=== PATIENT | male | born 2000 | race Caucasian/White ===

== ENCOUNTER 2019-04-04 00:49 | Emergency (ER) | payer OTHER ==
[2019-04-04 01:43] LABS: BASO % 0.5 % (0.0-1.0); EOS # 0.1 10^3/uL (0.0-0.50); EOS % 0.8 % (0.0-3.0); HEMATOCRIT 42.1 % (42.0-52.0); HEMOGLOBIN 14.5 g/dl (13.5-17.5); LYMPH # 2.2 10^3/uL (1.5-6.5); LYMPH % 26.5 % (24.0-44.0); MEAN CORPUSCULAR HEMOGLOBIN 31.1 pg (27.0-33.0); MEAN CORPUSCULAR HGB CONC 34.4 g/dl (32.0-36.5); MEAN CORPUSCULAR VOLUME 90.3 fl (80.0-96.0); MONO # 0.7 10^3/uL (0.0-0.8); MONO % 8.5 % (0.0-5.0); NEUTROPHILS # 5.2 10^3/uL (1.8-7.7); NEUTROPHILS % 63.5 % (36.0-66.0); PLATELET COUNT, AUTOMATED 212 10^3/uL (150-450); RED BLOOD COUNT 4.66 10^6/uL (4.30-6.10); WHITE BLOOD COUNT 8.3 10^3/uL (4.0-10.0)
[2019-04-04 02:14] LABS: BLOOD UREA NITROGEN 14 MG/DL (7-18); CALCIUM LEVEL 8.8 MG/DL (8.5-10.1); CARBON DIOXIDE LEVEL 28 MEQ/L (21-32); CHLORIDE LEVEL 107 MEQ/L (98-107); CREATININE FOR GFR 1.42 MG/DL (0.70-1.30); GLUCOSE, FASTING 107 MG/DL (70-100); POTASSIUM SERUM 3.6 MEQ/L (3.5-5.1); SODIUM LEVEL 141 MEQ/L (136-145)
[2019-04-04 03:45] LABS: AMPHETAMINES LEVEL URINE NEGATIVE (NEGATIVE); BARBITURATES URINE NEGATIVE (NEGATIVE); BENZODIAZEPINES URINE NEGATIVE (NEGATIVE); CANNABINOIDS URINE NEGATIVE (NEGATIVE); COCAINE METABOLITE URINE NEGATIVE (NEGATIVE); METHADONE URINE NEGATIVE (NEGATIVE); OPIATES URINE NEGATIVE (NEGATIVE); PHENCYCLIDINE URINE NEGATIVE (NEGATIVE)
--- NOTE | 2019-04-04 04:42 | REPVR ---
EXAM: CT Head Without Contrast EXAM DATE/TIME: 04/04/2019 3:00 AM CLINICAL HISTORY: 18 years old, male; Other: Possible seizure; Additional info: Syncope v seizure TECHNIQUE: Imaging protocol: Computed tomography images of the head without contrast. Radiation optimization: All CT scans at this facility use at least one of these dose optimization techniques: automated exposure control; mA and/or kV adjustment per patient size (includes targeted exams where dose is matched to clinical indication); or iterative reconstruction. COMPARISON: No relevant prior studies available. FINDINGS: Brain: The cortical/white matter interfaces are preserved throughout the brain. There is no evidence of intracranial hemorrhage. No parenchymal mass lesions are identified. Ventricles: The ventricular system is normal in size and configuration. Bones/joints: No acute fractures of the skull are identified. Sinuses: The visualized paranasal sinuses are clear. Mastoid air cells: The mastoid air cells are clear. Soft tissues: Unremarkable. IMPRESSION: Normal appearance of the brain. Electronically signed by: Aziza Roy On 04/04/2019 04:41:53 AM
[2019-04-04 05:22] VITALS: BP 124/59
--- NOTE | 2019-04-04 06:03 | ECGEPIP ---
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
--- NOTE | 2019-04-04 08:08 | REP ---
The PA and lateral chest: There are no comparisons. The lung cantu are clear. The cardiac size is normal. The lalo, mediastinum, and skeletal structures are unremarkable. Impression: Negative PA and lateral chest. Electronically Signed by Stephan Wiggins MD 04/04/2019 07:59 A
== END 2019-04-04 06:08 | disposition home or self-care (01) ==
LOC: M ED 00:49
DX: R25.1 Tremor, unspecified (principal)

== ENCOUNTER 2019-08-12 22:07 | Inpatient (IN) | payer OTHER ==
[~2019-08-12] VITALS: Ht 170.2 cm; Wt 67.0 kg
[2019-08-12] MEDS ORDERED: ASPIRIN 81 MG CHEW TABLET PO ONE (22:30)
[2019-08-12] MEDS ORDERED: GI COCKTAIL 50ML BTL(HYOSCYAMINE/MAALOX/LIDOCAINE VISCOUS)(1:3:1) PO ONE (22:30)
[2019-08-12] MEDS ORDERED: NS 1,000 ML IV ONE (22:30)
[2019-08-12 22:54] LABS: BASO % 0.3 % (0.0-1.0); EOS % 0.4 % (0.0-3.0); HEMATOCRIT 43.7 % (42.0-52.0); HEMOGLOBIN 15.1 g/dl (13.5-17.5); LYMPH % 20.4 % (24.0-44.0); MEAN CORPUSCULAR HEMOGLOBIN 30.9 pg (27.0-33.0); MEAN CORPUSCULAR HGB CONC 34.6 g/dl (32.0-36.5); MEAN CORPUSCULAR VOLUME 89.5 fl (80.0-96.0); MONO # 0.7 10^3/uL (0.0-0.8); MONO % 6.7 % (0.0-5.0); NEUTROPHILS # 7.2 10^3/uL (1.5-8.5); PLATELET COUNT, AUTOMATED 262 10^3/uL (150-450); RED BLOOD COUNT 4.88 10^6/uL (4.30-6.10)
[2019-08-12 23:10] LABS: PROTHROMBIN TIME 12.9 SECONDS (11.8-14.0)
[2019-08-12 23:24] LABS: AMPHETAMINES LEVEL URINE NEGATIVE (NEGATIVE); BARBITURATES URINE NEGATIVE (NEGATIVE); BENZODIAZEPINES URINE NEGATIVE (NEGATIVE); CANNABINOIDS URINE NEGATIVE (NEGATIVE); COCAINE METABOLITE URINE NEGATIVE (NEGATIVE); METHADONE URINE NEGATIVE (NEGATIVE); OPIATES URINE NEGATIVE (NEGATIVE); PHENCYCLIDINE URINE NEGATIVE (NEGATIVE)
[2019-08-12 23:33] LABS: ALBUMIN 4.2 GM/DL (3.2-5.2); ALT/SGPT 28 U/L (12-78); BILIRUBIN,DIRECT 0.1 MG/DL (0.0-0.2); BILIRUBIN,TOTAL 0.2 MG/DL (0.2-1.0); BLOOD UREA NITROGEN 11 MG/DL (7-18); CALCIUM LEVEL 8.7 MG/DL (8.5-10.1); CARBON DIOXIDE LEVEL 28 MEQ/L (21-32); CHLORIDE LEVEL 108 MEQ/L (98-107); CK-MB VALUE MASS < 1.0 NG/ML (<3.6); CPK CREATINE PHOSPHOKINASE 230 U/L (39-308); CREATININE FOR GFR 1.09 MG/DL (0.70-1.30); GLUCOSE, FASTING 100 MG/DL (70-100); LIPASE 6061 U/L (73-393); MB/CK RELATIVE INDEX 0.43 (< OR =4); POTASSIUM SERUM 3.8 MEQ/L (3.5-5.1); SODIUM LEVEL 142 MEQ/L (136-145); TOTAL PROTEIN 7.7 GM/DL (6.4-8.2); TROPONIN I < 0.02 NG/ML (< 0.10)
[2019-08-12] MEDS ORDERED: MORPHINE 4 MG/ML 1ML VIAL/SYRINGE (J2270) IV ONE (23:45)
[2019-08-12] MEDS ORDERED: ZOFR4TAB16 PO (23:59)
[2019-08-12] MEDS ORDERED: NORC1TAB7 PO (23:59)
[2019-08-13] VITALS (8 sets, daily range): BP systolic 104–132; BP diastolic 50–72
[2019-08-13] MEDS: NORCO 5/325MG TABLET (BULK FOR ED) PO ONE ×2 (00:11→00:15)
[2019-08-13] MEDS ORDERED: ISOVUE-370 76% 100ML VIAL (Q9967) As Ordered ONE (02:41)
--- NOTE | 2019-08-13 03:23 | REPVR ---
PROCEDURE INFORMATION: Exam: CT Head Without Contrast Exam date and time: 08/13/2019 2:51 AM Age: 19 years old Clinical history: Altered mental status/memory loss; Additional info: AMS, pancreatitis, seizures TECHNIQUE: Imaging protocol: Computed tomography of the head without contrast. Radiation optimization: All CT scans at this facility use at least one of these dose optimization techniques: automated exposure control; mA and/or kV adjustment per patient size (includes targeted exams where dose is matched to clinical indication); or iterative reconstruction. COMPARISON: CT Head without contrast 04/04/2019 2:59 AM FINDINGS: Brain: Normal. No hemorrhage. Unremarkable white matter. No mass effect. Ventricles: Normal. No ventriculomegaly. Bones/joints: Unremarkable. No acute fracture. Sinuses: Visualized sinuses are unremarkable. No fluid levels. Mastoid air cells: Visualized mastoid air cells are well aerated. Soft tissues: Unremarkable. IMPRESSION: Negative noncontrast head CT without change from 04/04/2019. Electronically signed by: Aba De Leon On 08/13/2019 03:22:50 AM
--- NOTE | 2019-08-13 03:30 | REPVR ---
PROCEDURE INFORMATION: Exam: CT Chest With Contrast Exam date and time: 08/13/2019 2:51 AM Age: 19 years old Clinical history: Chest pain; Additional info: AMS, pancreatitis, seizures TECHNIQUE: Imaging protocol: Computed tomography of the chest with intravenous contrast. Radiation optimization: All CT scans at this facility use at least one of these dose optimization techniques: automated exposure control; mA and/or kV adjustment per patient size (includes targeted exams where dose is matched to clinical indication); or iterative reconstruction. Contrast material: ISOVUE 370; Contrast volume: 100 ml; Contrast route: IV; COMPARISON: CR Chest, 2 view PA, Lat 08/12/2019 10:31 PM FINDINGS: Lungs: Unremarkable. No consolidation. No masses. Pleural space: Unremarkable. No pneumothorax. No pleural effusion. Heart: Unremarkable. No cardiomegaly. No pericardial effusion. Mediastinum: There is soft tissue conforming to the anterior mediastinum consistent with residual thymic tissue. Pulmonary arteries: The main pulmonary artery measures 23 mm. No central pulmonary embolism is identified. Aorta: The ascending thoracic aorta measures 23 mm. Lymph nodes: Unremarkable. No enlarged lymph nodes. Bones/joints: Unremarkable. No acute fracture. Soft tissues: Unremarkable. IMPRESSION: Negative CT chest. No central pulmonary embolism is identified. Electronically signed by: Aba De Leon On 08/13/2019 03:30:11 AM
--- NOTE | 2019-08-13 03:34 | REPVR ---
PROCEDURE INFORMATION: Exam: CT Abdomen And Pelvis With Contrast Exam date and time: 08/13/2019 2:51 AM Age: 19 years old Clinical history: Abdominal pain; Generalized; Additional info: AMS, pancreatitis, seizures TECHNIQUE: Imaging protocol: Computed tomography of the abdomen and pelvis with intravenous contrast. Radiation optimization: All CT scans at this facility use at least one of these dose optimization techniques: automated exposure control; mA and/or kV adjustment per patient size (includes targeted exams where dose is matched to clinical indication); or iterative reconstruction. Contrast material: ISOVUE 370; Contrast volume: 100 ml; Contrast route: IV; COMPARISON: No relevant prior studies available. FINDINGS: Liver: The liver attenuation is 100 Hounsfield units and the spleen is 128 Hounsfield units. The liver at mid clavicular line measures 18.5 cm. Gallbladder and bile ducts: Normal. No calcified stones. No ductal dilation. Pancreas: Normal. No ductal dilation. Spleen: Normal. No splenomegaly. Adrenals: Normal. No mass. Kidneys and ureters: Normal. No hydronephrosis. Stomach and bowel: Unremarkable. No obstruction. No mucosal thickening. Appendix: There are no changes of appendicitis. A normal appendix is not seen. Intraperitoneal space: Unremarkable. No free air. No significant fluid collection. Vasculature: Unremarkable. No abdominal aortic aneurysm. Lymph nodes: Unremarkable. No enlarged lymph nodes. Bladder: Unremarkable as visualized. Reproductive: Unremarkable as visualized. Bones/joints: Unremarkable. No acute fracture. Soft tissues: Unremarkable. IMPRESSION: 1. Mild hepatomegaly. 2. Otherwise negative CT abdomen/pelvis. Electronically signed by: Aba De Leon On 08/13/2019 03:34:23 AM
[2019-08-13] MEDS ORDERED: levETIRAcetam INJection 1,000 MG in D5W 100 ML IV ONE (04:15)
[2019-08-13] MEDS ORDERED: ONDANSETRON 4MG/2ML VIAL (J2405) IV PRN (04:45)
[2019-08-13] MEDS ORDERED: ACETAMINOPHEN TAB 650MG DOSE (2X325MG) PO PRN (04:45)
[2019-08-13] MEDS ORDERED: LORazepam 2 MG TAB PO PRN (05:00)
--- NOTE | 2019-08-13 06:37 | HPEPDOC ---
General Date of Admission Aug 13, 2019 at 04:39 Date of Service: Aug 13, 2019 Other Providers neuro: Dr. Rocha Attending Physician: LEYDI HART DO Chief Complaint The patient is a 19-year-old male admitted with a reason for visit of Pancreatitis, Alcoholic, Acute, Recurrent Seizures. History of Present Illness 19-year-old male recently being worked up for possible seizures since March 2019, following with Dr. Rocha, presents for initial left-sided chest pain, and later found to have question of seizures in the ER. He reports this chest pain was s harp left upper chest without any radiation or aggravating or alleviating factors. Pain worse with deep breathing, came on suddenly while he was resting without any inciting factors. Denies any recent fevers, chills, travel, changes in meds, sick contacts, prolonged periods of rest, or any recent injuries. No cardiac history in him or family. He reports chest pain self resolved in the ER, however upon discharge, he was noted to have 6 episodes of questionable seizures. When examined at bedside, he has his friends in the room, who witnessed the seizure and state he had a total of 6 episodes, which increased in length in succession, first episode lasting about a minute, second episode around 5 minutes, ultimately last episode lasting about one hour. During these episodes, patient reports he was able to fully understand and make out what people are saying and what was going on around him, however he felt "locked in" and unable to verbalize back what he wanted to say. No loss of consciousness, tongue biting, shaking, bowel or bladder incontinence. These episodes also reportedly self resolved without any intervention. He was reportedly postictal with some slurred speech and confusion after each episode. ER spoke with Dr. Rocha who recommended loading dose Keppra, and to switch to by mouth maintenance Keppra in the morning. At time of admission, he denies all symptoms and feels back to normal. Of note, he was also noted to have elevated lipase 6000+, downplays how much alcohol he drinks, stating "only on occasions" and last drink reportedly last weekend, however EtOH at 0.194. No pancreatitis noted on imaging, and chest pain resolved on its own. No episode of abd pain or n/v/bowel changes. Will be admitted for ?seizure and ?pancreatitis. Home Medications Scheduled Ondansetron HCl (Zofran) 4 Mg Tablet, 1 TAB PO Q6H Scheduled PRN Hydrocodone/Acetaminophen ([place] 5-325 Tablet) 1 Each Tablet, 1-2 TAB PO Q4-6HP PRN for pain Allergies Coded Allergies: No Known Allergies (Unverified , 04/04/19) Past Medical History Medical History ?seizures Surgical History none Family History asked. All healthy per pt Social History alcohol: downplays how much he drinks. States only on occasions, but elevated EtOH and laughing when saying this drugs: denies tobacco: denies active infantry on [place] A-FIB/CHADSVASC A-FIB History Current/History of A-Fib/PAF?: No Current PO Anticoag Therapy: No Review of Systems Other systems Constitutional: Denies fever, chills, night sweats, weight loss HEENT: Denies headache, dysphagia Skin: Denies any rashes or lesions Pulmonary: Denies dyspnea, cough, wheezing Cardiac: Admits left upper chest pain self resolved. No palpitations, orthopnea, PND, edema, lightheadedness GI: Denies nausea, vomiting, abdominal pain, diarrhea, constipation, melena, hematochezia : Denies dysuria, hematuria, retention MSK: Denies new pains or weakness Neurologic: Denies new numbness/tingling. Admits to feeling "locked in" and unable to verbalize his thoughts. Currently no symptoms. See HPI Physical Examination Other physical findings General exam: A&O 3, NAD, resting comfortably HEENT: NCAT, EOMI, PEERLA Cardiac: RRR, normal S1 & S2, no murmurs Respiratory: CTAB, good air exchange, no w/r/r Abdomen: soft, NT, ND, normoactive bowel sounds Extremity: 2+ radial and dorsalis pedis pulses, no edema or calf tenderness Skin: [place], warm, dry, no visible rash Msk: strength 5/5 x4, normal tone, equal social services coordinator strength Neuro: normal speech, no focal deficits. CN 2-12 intact. Finger to nose & Rapid alternating mvmts intact. No tongue biting lesions or nystagmus. Answers appropriately & follows commands. No slurred speech or deficits. Sensation & motor all intact Psych: Normal mood and affect Vital Signs Vital Signs Date Time Temp Pulse Resp B/P (MAP) Pulse Ox O2 Delivery O2 Flow Rate FiO2 11/27/19 05:01 70 118/67 (84) 97 08/13/19 01:17 Room Air 08/13/19 00:11 15 08/12/19 22:21 97.7 Laboratory Data Labs 24H Laboratory Tests 2 08/12/19 22:39: Immature Granulocyte % (Auto) 0.2, Neutrophils (%) (Auto) 72.0H, Lymphocytes (%) (Auto) 20.4L, Monocytes (%) (Auto) 6.7H, Eosinophils (%) (Auto) 0.4, Basophils (%) (Auto) 0.3, Neutrophils # (Auto) 7.2, Lymphocytes # (Auto) 2.0, Monocytes # (Auto) 0.7, Eosinophils # (Auto) 0.0, Basophils # (Auto) 0.0, Nucleated Red Blood Cells % (auto) 0.0, Prothrombin Time 12.9, Prothromb Time International Ratio 1.00, Anion Gap 6L, Calcium Level 8.7, Total Bilirubin 0.2, Direct Bilirubin 0.1, Aspartate Amino Transf (AST/SGOT) 27, Alanine Aminotransferase (ALT/SGPT) 28, Alkaline Phosphatase 88, Total Creatine Kinase 230, Creatine Kinase MB < 1.0, Creatine Kinase MB Relative Index 0.43, Troponin I < 0.02, Total Protein 7.7, Albumin 4.2, Albumin/Globulin Ratio 1.20, Lipase 6061H, Urine Opiates Screen NEGATIVE, Urine Methadone Screen NEGATIVE, Urine Barbiturates Screen NEGATIVE, Urine Phencyclidine Screen NEGATIVE, Urine Amphetamines Screen NEGATIVE, Urine Benzodiazepines Screen NEGATIVE, Urine Cocaine Metabolite Screen NEGATIVE, Urine Cannabinoids Screen NEGATIVE, Ethyl Alcohol Level 0.194H CBC/BMP Laboratory Tests 08/12/19 22:39 Assessment/Plan 19-year-old healthy male being worked up for possible seizures since March 2019, initially presented for chest pain that self resolved, found to have lipase 6000+ and heavy drinker, but negative CT abdomen. Noted to have 6 episodes of questionable seizures in the ER, admitted for possible seizures and possible pancreatitis. ?seizure vs pseudoseizure Patient symptoms not fully consistent with seizure, given he states there were 6 in succession, longest lasting 1 hour, and he felt locked in, however fully understood everything going on around him. ?Broca's aphasia Had an MRI done at neurologist office yesterday 08/12/2019. Will obtain those records. CT on admission negative Neuro checks every 4h, seizure precautions Dr. Rocha consulted, appreciate input. Per recommendation, loading dose Keppra giv en in ER, standing dose ordered to start today Will obtain EEG and CPK to further assist Elevated lipase ? Pancreatitis as patient initially presented for chest pain that self resolved. Elevated EtOH in ER 0.194 and lipase 6000+. Never had any GI complaints, no nausea, vomiting, abdominal pain, bowel habit changes. However his chest pain that he initially presented for May be referred pain from this. Will treat as possible pancreatitis, started on fluids and pain mngmt prn, although no pain currently. Will recheck level in am to confirm if lipase is truly elevated. Alcohol use Patient reports only drinking socially and that his last drink was this past weekend, however EtOH elevated on admission and gave conflicting stories on different accounts. Counseled on decreasing alcohol, however he laughs at this with his friends in room. Continue encouragement. CIWA protocol in place. DVT ppx: heparin sc DISPO: admit to gen med floor. To be seen by Neuro. Plan / VTE VTE Prophylaxis Ordered?: Yes MARSHALL EBLTRE DO Aug 13, 2019 06:37
[2019-08-13 07:32] LABS: CPK CREATINE PHOSPHOKINASE 210 U/L (39-308); LIPASE 908 U/L (73-393)
--- NOTE | 2019-08-13 07:36 | REP ---
Clinical: Acute chest pain . Comparison: 04/04/2019 . Technique: PA and lateral. Findings: The mediastinum and cardiac silhouette are normal. The lung cantu are clear and without acute consolidation, effusion, or pneumothorax. The skeletal structures are intact and normal. Impression: 1. No acute cardiopulmonary process. Electronically Signed by Giles Alaniz MD 08/13/2019 07:28 A
[2019-08-13] MEDS: NS 1,000 ML IV SCH ×2 (07:44→12:00)
--- NOTE | 2019-08-13 09:00 | ECGEPIP ---
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
[2019-08-13] MEDS: THIAMINE 100 MG TAB PO SCH ×2 (09:41→20:04)
[2019-08-13] MEDS: HEPARIN SOD (PORCINE) 5000 UNITS/ML VIAL SC SCH ×2 (09:41→20:04)
[2019-08-13] MEDS: levETIRAcetam 250MG TABLET (KEPPRA) PO SCH ×2 (09:41→20:05)
[2019-08-13] MEDS: MULTIVITAMINS/MINERALS THERAP 1 TAB PO SCH (09:41)
[2019-08-13] MEDS: FOLIC ACID 1 MG TAB PO SCH (09:41)
--- NOTE | 2019-08-13 12:13 | IPNPDOC ---
Text Note Date of Service The patient was seen on 08/13/19. NOTE Patient seen and evaluated this am. No further spells after coming up to the floor, denies any abdominal pain, nausea or vomiting or diarrhea, says feels hungry. PHYSICAL EXAM: Vitals as below. General exam: A&O 3, NAD, resting comfortably HEENT: NCAT, EOMI, PEERLA Cardiac: RRR, normal S1 & S2, no murmurs Respiratory: CTAB, good air exchange, no w/r/r Abdomen: soft, NT, ND, normoactive bowel sounds Extremity: 2+ radial and dorsalis pedis pulses, no edema or calf tenderness Skin: [place], warm, dry, no visible rash Msk: strength 5/5 x4, normal tone, equal ep specialist strength Neuro: normal speech, no focal deficits. CN 2-12 intact. Finger to nose & Rapid alternating mvmts intact. No tongue biting lesions or nystagmus. Answers appropriately & follows commands. No slurred speech or deficits. Sensation & motor all intact Psych: Normal mood and affect Plan: Seizures: Spoke with neurology Dr Rocha MRi brain as out pt normal , out pt EEG normal, they will order an ambulatory EEG, Also tests for autonomic dysfunction was normal. recommended an EEG and Echo because of abnormal ekg. will get those, continue with macarena. Unlikely pancreatitis: Lipase almost normal today. CT abd neg probably had acute gastritis due to alcohol . will advance diet. Alcohol use heavy continue [facility] protocol thiamine and folate VS,Fishbone, I+O VS, Fishbone, I+O Laboratory Tests 08/12/19 22:39 Vital Signs Date Time Temp Pulse Resp B/P (MAP) Pulse Ox O2 Delivery O2 Flow Rate FiO2 08/13/19 08:10 63 132/61 08/13/19 08:00 98.0 16 95 Room Air I&O- Last 24 Hours up to 6 AM 08/13/19 06:00 Intake Total 1110 ml Balance 1110 ml MIN ROSARIO MD Aug 13, 2019 12:13
[2019-08-13] MEDS ORDERED: SLF 3 ML SYR IV PRN (12:30)
[2019-08-13] MEDS: SLF 3 ML SYR IV SCH ×2 (14:00→21:23)
--- NOTE | 2019-08-13 21:19 | ECHO ---
DATE OF PROCEDURE: 08/13/2019 Date of : 2000 Age: 19 REFERRING PHYSICIAN: Jose Angel Holden MD PATIENT LOCATION: Room 3230 REASON FOR ECHOCARDIOGRAM: Abnormal EKG. 2D MEASUREMENTS: IVS: 1.1 cm LV: 4.3 cm LVPW: 1.1 cm LA: 2.8 cm Aorta: 2.4 cm DOPPLER MEASUREMENTS: Peak velocity across the aortic valve: 1.3 m/s Peak velocity across the LVOT: 0.93 m/s Mitral E: 0.82, Mitral A: 0.30, with a ratio of 2.8 Maximum tricuspid valve velocity: 2.1 m/s 2D COMMENTS: 1. Normal left ventricular size, wall thickness, and normal global left ventricular systolic function. The estimated left ventricular systolic ejection fraction is 60-65%. 2. Normal left atrium. Normal right atrium and right ventricle. 3. The atrial septum appeared to be normal without evidence of defect or shunt. 4. Normal aortic root. 5. No pericardial effusion seen. 6. The aortic valve, mitral valve, and tricuspid valve appeared to be normal. The pulmonic valve also appeared to be normal. The proximal pulmonary artery branches were not well visualized. 7. The inferior vena cava was normal in size, central venous pressure is most likely normal size 1.6 cm. DOPPLER It detects trace aortic regurgitation, trace mitral regurgitation, and trace tricuspid regurgitation. The calculated pulmonary artery systolic pressure was normal. Assessment of the left ventricular diastolic function appeared to be normal. IMPRESSION 1. Normal global left ventricular systolic and diastolic function. 2. Trace aortic regurgitation. 3. Trace mitral regurgitation. 4. Trace tricuspid regurgitation with a normal calculated pulmonary artery systolic pressure.
[2019-08-14 02:28] VITALS: BP 120/65
[2019-08-14] MEDS: SLF 3 ML SYR IV SCH (05:41)
[2019-08-14 06:00] VITALS: BP 101/55
[2019-08-14 06:42] LABS: HEMATOCRIT 44.8 % (42.0-52.0); HEMOGLOBIN 14.6 g/dl (13.5-17.5); MEAN CORPUSCULAR HEMOGLOBIN 30.5 pg (27.0-33.0); MEAN CORPUSCULAR HGB CONC 32.6 g/dl (32.0-36.5); MEAN CORPUSCULAR VOLUME 93.7 fl (80.0-96.0); PLATELET COUNT, AUTOMATED 198 10^3/uL (150-450); RED BLOOD COUNT 4.78 10^6/uL (4.30-6.10); WHITE BLOOD COUNT 5.3 10^3/uL (4.0-10.0)
[2019-08-14 07:10] LABS: ALBUMIN 3.4 GM/DL (3.2-5.2); ALT/SGPT 25 U/L (12-78); BILIRUBIN,TOTAL 0.3 MG/DL (0.2-1.0); BLOOD UREA NITROGEN 16 MG/DL (7-18); CALCIUM LEVEL 8.4 MG/DL (8.5-10.1); CARBON DIOXIDE LEVEL 29 MEQ/L (21-32); CHLORIDE LEVEL 108 MEQ/L (98-107); CREATININE FOR GFR 1.11 MG/DL (0.70-1.30); GLUCOSE, FASTING 88 MG/DL (70-100); MAGNESIUM LEVEL 1.8 MG/DL (1.8-2.4); POTASSIUM SERUM 3.9 MEQ/L (3.5-5.1); SODIUM LEVEL 141 MEQ/L (136-145); TOTAL PROTEIN 6.9 GM/DL (6.4-8.2)
[2019-08-14 08:00] VITALS: BP 132/65
--- NOTE | 2019-08-14 08:10 | EEG ---
DATE OF EE08/13/2019 REFERRING PHYSICIAN: Dr. Jose Angel Holden EEG NUMBER: [id number] REASON FOR EEG: Seizure-like spells. HISTORY OF PRESENT ILLNESS: Luis Armando Allen is a 19-year-old man who was admitted at [facility] due to multiple complaints including chest pain, alcoholism with blood alcohol level 0.194, elevated lipase, which was about 6000, and had seizure-like spells in emergency department. He had 5-6 spells in which he would zone out, stop responding and his body would lock up. This EEG was done to rule out epileptic potential. He received a dose of Ativan and is taking Keppra, thiamine, folic acid, etc. TECHNICAL DESCRIPTION: This digital EEG was recorded by 21 scalp, ear and two EKG electrodes and was reviewed in bipolar and referential montages following reformatting in 10-20 international electrode placement system. INTERPRETATION: The patient was noted to be in awake and drowsy states during this EEG. Resting awake background rhythm consisted of well-formed posterior dominant rhythm with anterior/posterior gradient comprising of 10 Hz alpha activity measuring 15-70 microvolts in amplitude, which was symmetric and reactive to eye opening. Attenuation of posterior dominant was seen during transition into drowsiness. Stage I, II and III sleep were reviewed and was symmetric bilaterally. Hyperventilation could not be performed. Photic stimulation remained unremarkable. EKG revealed sinus rhythm. No focal, lateralizing or epileptiform abnormalities were seen. No relevant clinical activity was noted. CONCLUSION: This EEG in awake, drowsy states, stage I, II and III sleep is within normal limits.
[2019-08-14] MEDS: levETIRAcetam 250MG TABLET (KEPPRA) PO SCH (08:16)
[2019-08-14] MEDS: THIAMINE 100 MG TAB PO SCH (08:16)
[2019-08-14] MEDS: FOLIC ACID 1 MG TAB PO SCH (08:16)
[2019-08-14] MEDS: HEPARIN SOD (PORCINE) 5000 UNITS/ML VIAL SC SCH (08:16)
[2019-08-14] MEDS: MULTIVITAMINS/MINERALS THERAP 1 TAB PO SCH (08:16)
--- NOTE | 2019-08-14 08:26 | CR ---
DATE OF CONSULTATION: 08/13/2019 REFERRING PHYSICIAN: Dr. Jose Angel Holden REASON FOR CONSULTATION: Seizure-like spells. HISTORY OF PRESENT ILLNESS: Luis Armando Allen is a 19-year-old man, who presented to [facility] with chest pain and was found to have blood alcohol level 0.194 and serum lipase 6061, which has since decreased to 908. CT scan of chest, abdomen, pelvis and head were unremarkable except mild hepatomegaly. In the emergency department, the patient was noted to have seizure-like spells. He states that he had 5 or 6 spells at night. His friends and emergency department staff witnessed these spells. These episodes became longer with each spell. First one lasted for a minute, second episode lasted for 5 minutes, and ultimately, last episode lasted an hour. Patient himself states that he would zone out and his body would lock up and he would have blank stare and his speech would be mumbling. He would be conscious but would not be able to respond. He knew what was going on. He remembers that the nurses came in did sternal rub and put ammonia next to his nose but he did not come out of these. According to Dr. Fan, who was in the emergency department, his eyes were deviated to left side and his body was stiff. I was called about him around 4 a.m. We gave him 1 mg of Ativan followed by Keppra 1000 mg IV dose, and he is currently taking maintenance dose of Keppra 500 mg twice a day and has not had any spells in last 12-14 hours. The patient feels back to his normal self. He downplays his alcohol intake. He states that he does not drink much alcohol. He states that he may have had 1 or 2 mixed drinks last night. He was admitted due to concern for pancreatitis and seizure-like spells. He EKG revealed sinus rhythm with voltage criteria for left ventricular hypertrophy and early repolarization with tall T waves. His echocardiogram is pending. This was noted on his previous EKG as well and I had recommended echocardiogram on outpatient basis, which was not done, but will be done during this hospital stay. The patient denies any headaches, neck or back pain, dysphagia, dysarthria, diplopia, falls or recent head injuries. PAST MEDICAL HISTORY: Episodes of passing out, and the patient is getting workup for concern for seizures. FAMILY HISTORY: Unremarkable and noncontributory. SOCIAL HISTORY: The patient states that he drinks only on occasions and drinks a couple of mixed drinks like last night, but his blood alcohol level is 0.194. He still thinks that he may drink once a week. He denies illicit drugs or smoking. REVIEW OF SYSTEMS: All systems were reviewed and found to be noncontributory except as mentioned in history present illness. CURRENT MEDICATIONS: - Keppra 500 mg by mouth twice a day - thiamine - folic acid - aspirin 81 mg by mouth daily - Zofran 4 mg by mouth four times a day as needed ALLERGIES: NONE. PHYSICAL EXAMINATION: Temperature 97.7, pulse 84, respiratory rate 18, blood pressure 105/50, 99% saturation on room air. Heart: Regular rate and rhythm. Lungs: Clear to auscultation. Abdomen: Soft, nontender, nondistended. No pedal edema. No musculoskeletal abnormalities. No rash. No signs of meningeal irritation. The patient is awake, alert, oriented to place, person and time. Normal speech, comprehension and repetition. Extraocular muscles are intact. No facial weakness. Tongue and uvula are midline. 5/5 strength in all four extremities. Deep tendon flexes 2+ throughout. Normal sensation. Gait is normal. DIAGNOSTIC STUDIES: As described above. His repeat EEG today is within normal limits. ASSESSMENT: 1. Seizure-like spells. 2. Alcohol-induced seizures and psychogenic nonepileptic spells are in the differential diagnosis. 3. Excessive alcohol intake with blood alcohol level 0.194 and likely gastritis causing elevated lipase as there is no evidence of pancreatitis on CT scan of abdomen and pelvis. 4. Abnormal EKG for which the patient had echocardiogram for further workup as described above. PLAN: 1. The patient is aware that he should not be driving. [facility] rules and regulations were explained. 2. He should avoid alcohol intake. 3. Echocardiogram is pending. 4. Keppra 500 mg by mouth twice a day for now. He is scheduled for 3 days ambulatory EEG on outpatient basis, which he will get done. 5. Follow with us as planned.
[2019-08-14] MEDS ORDERED: KEPP250T5 PO (11:26)
[2019-08-14] MEDS ORDERED: THIA100TA PO ×2 (11:26→12:12)
[2019-08-14] MEDS ORDERED: FOLI1TAB11 PO ×2 (11:26→12:12)
[2019-08-14 11:27] LABS: LIPASE 89 U/L (73-393)
[2019-08-14] MEDS ORDERED: KEPP1TAB PO (12:12)
--- NOTE | 2019-08-14 17:51 | DS.PDOC ---
Discharge Summary General Date of Admission Aug 13, 2019 at 04:39 Date of Discharge August 14, 2019 Specialist/Consultants Involve: KARTHIKEYAN HULL MD Discharge Summary PROCEDURES PERFORMED DURING STAY: EEG, Echocardiogram. ADMITTING DIAGNOSES: Chest pain, possible seizure disorder DISCHARGE DIAGNOSES: Noncardiac chest pain resolved, possible seizure disorder, elevated lipase but ruled out for acute pancreatitis, alcohol dependency with intoxication COMPLICATIONS/CHIEF COMPLAINT: Pancreatitis, Alcoholic, Acute, Recurrent Seizures. HISTORY OF PRESENT ILLNESS/HOSPITAL COURSE: 19-year-old male who initially had had a complaint of chest pain. This was short-lived. It wasn't accompanied by shortness of breath, nausea or vomiting. The patient also reportedly had 6 episodes of short-term seizure activity. Upon initial evaluation in the emergency room, his chest pain had resolved, but he was found to have a lipase elevated to greater than 6000, raising concern for pancreatitis. Additionally, he had a serum alcohol level of 194 mg/dL. The patient was placed on the medical floor. Again, his chest pain had resolved. He was not felt to be having a cardiac event. His serum lipase dropped precipitously to 908 and then to 89. He was not felt to have an acute pancreatitis as he was asymptomatic for this. Patient has had evaluation by video EEG was not felt to be having epileptiform activity. Echocardiogram obtained showed normal left ventricular systolic function with an ejection fraction of 60-65%. Trace valvular regurgitation was noted. Due to the patient's alcohol intoxication he was placed on CIWA protocol, but did not exhibit alcohol withdrawal symptoms. The patient was otherwise stable for discharge. He is to follow-up with neurology services for additional evaluation. The patient unfortunately does not acknowledge that he has an alcohol use problem.. DISCHARGE MEDICATIONS: Please see below. ALLERGIES: Please see below. PHYSICAL EXAMINATION ON DISCHARGE: VITAL SIGNS: Please see below. GENERAL: Awake, alert, conversant HEENT: Neck is supple with no adenopathy, patient does not have scleral injection CARDIOVASCULAR EXAMINATION: Regular rate and rhythm RESPIRATORY EXAMINATION: Clear to auscultation, no tenderness elicited to palpa tion of anterior chest wall ABDOMINAL EXAMINATION: Soft, nontender, nondistended EXTREMITIES: No edema, pedal pulses palpable SKIN: No jaundice NEUROLOGICAL EXAMINATION: No focal neuromotor or sensory deficit, no tremors PSYCHIATRIC EXAMINATION: Poor judgment and insight with regard to his alcohol use LABORATORY DATA: Please see below. IMAGING: PROGNOSIS: ACTIVITY: As tolerated; alcohol cessation or at least reduction recommended. Also, until seizure question is answered, he is not to drive.. DIET: Regular as tolerated DISCHARGE PLAN: Patient is stable for discharge to home. He'll remain on seizure medication until reviewed by neurology service. He is to follow-up with neurologist, Dr. Hull in the office for additional ambulatory EEG testing. He is again instructed not to drive in the interim. DISPOSITION: Home, Self-Care. DISCHARGE INSTRUCTIONS: 1. . DISCHARGE CONDITION: Stable. TIME SPENT ON DISCHARGE: 40 minutes. Vital Signs/I&Os Vital Signs Date Time Temp Pulse Resp B/P (MAP) Pulse Ox O2 Delivery O2 Flow Rate FiO2 08/14/19 08:00 132/65 08/14/19 06:00 97.3 111 24 94 08/13/19 18:30 Room Air I&O- Last 24 Hours up to 6 AM 08/14/19 06:00 Intake Total 2770 ml Output Total 1750 ml Balance 1020 ml Laboratory Data Labs 24H Laboratory Tests 2 08/14/19 06:06: Nucleated Red Blood Cells % (auto) 0.0, Anion Gap 4L, Calcium Level 8.4L, Magnesium Level 1.8, Total Bilirubin 0.3, Aspartate Amino Transf (AST/SGOT) 20, Alanine Aminotransferase (ALT/SGPT) 25, Alkaline Phosphatase 73, Total Protein 6.9, Albumin 3.4, Albumin/Globulin Ratio 0.97L, Lipase 89 CBC/BMP Laboratory Tests 08/14/19 06:06 Discharge Medications Scheduled Folic Acid (Folic Acid) 1 Mg Tablet, 1 TAB PO DAILY Levetiracetam (Keppra) 500 Mg Tablet, 500 MG PO BID Ondansetron HCl (Zofran) 4 Mg Tablet, 1 TAB PO Q6H Thiamine Hcl (Vitamin B-1) 100 Mg Tablet, 100 MG PO DAILY Scheduled PRN Hydrocodone/Acetaminophen ([place] 5-325 Tablet) 1 Each Tablet, 1-2 TAB PO Q4-6HP PRN for pain Allergies Coded Allergies: No Known Allergies (Unverified , 04/04/19) JALEN OVIEDO MD Aug 14, 2019 17:51
== END 2019-08-14 12:41 | disposition home or self-care (01) | DRG 313 ==
LOC: M ED 22:07 → EDBD 22:07 → EDUNIT# 22:07 → M ED INP 08-13 04:39 → M PCU 08-13 07:17 → M MSPAV 08-13 18:23
PROVIDERS: ADMIT Internal Medicine; ATTEND Internal Medicine
DX: R07.89 Other chest pain (principal); K29.20 Alcoholic gastritis without bleeding; F10.229 Alcohol dependence with intoxication, unspecified; G40.409 Other generalized epilepsy and epileptic syndromes, not intractable, without status epilepticus; Z79.899 Other long term (current) drug therapy

== ENCOUNTER 2019-08-19 12:15 | Emergency (ER) | payer OTHER ==
[~2019-08-19] VITALS: Ht 170.2 cm; Wt 67.5 kg
[~2019-08-19 12:15] MED LIST: FOLI1TAB11 PO; KEPP1TAB PO; KEPP250T5 PO; NORC1TAB7 PO; THIA100TA PO; ZOFR4TAB16 PO
[2019-08-19] MEDS ORDERED: NS 1,000 ML IV ONE (13:15)
[2019-08-19 13:49] LABS: BASO % 0.4 % (0.0-1.0); EOS # 0.1 10^3/uL (0.0-0.5); HEMATOCRIT 44.5 % (42.0-52.0); HEMOGLOBIN 15.3 g/dl (13.5-17.5); LYMPH # 1.9 10^3/uL (1.5-5.0); MEAN CORPUSCULAR HGB CONC 34.4 g/dl (32.0-36.5); MEAN CORPUSCULAR VOLUME 90.3 fl (80.0-96.0); MONO # 0.6 10^3/uL (0.0-0.8); MONO % 8.3 % (0.0-5.0); NEUTROPHILS # 4.2 10^3/uL (1.5-8.5); NEUTROPHILS % 62.2 % (36.0-66.0); PLATELET COUNT, AUTOMATED 236 10^3/uL (150-450); RED BLOOD COUNT 4.93 10^6/uL (4.30-6.10); WHITE BLOOD COUNT 6.8 10^3/uL (4.0-10.0)
[2019-08-19 14:26] LABS: ALBUMIN 3.7 GM/DL (3.2-5.2); ALT/SGPT 35 U/L (12-78); BILIRUBIN,TOTAL 0.6 MG/DL (0.2-1.0); BLOOD UREA NITROGEN 16 MG/DL (7-18); CARBON DIOXIDE LEVEL 29 MEQ/L (21-32); CHLORIDE LEVEL 105 MEQ/L (98-107); CK-MB VALUE MASS < 1.0 NG/ML (<3.6); CPK CREATINE PHOSPHOKINASE 83 U/L (39-308); CREATININE FOR GFR 1.05 MG/DL (0.70-1.30); ETHYL ALCOHOL (ETHANOL) < 0.003 % (0.000-0.010); GLUCOSE, FASTING 75 MG/DL (70-100); LIPASE 68 U/L (73-393); SODIUM LEVEL 141 MEQ/L (136-145); TOTAL PROTEIN 7.2 GM/DL (6.4-8.2); TROPONIN I < 0.02 NG/ML (< 0.10)
[2019-08-19 15:02] LABS: AMPHETAMINES LEVEL URINE NEGATIVE (NEGATIVE); BARBITURATES URINE NEGATIVE (NEGATIVE); BENZODIAZEPINES URINE NEGATIVE (NEGATIVE); CANNABINOIDS URINE NEGATIVE (NEGATIVE); COCAINE METABOLITE URINE NEGATIVE (NEGATIVE); METHADONE URINE NEGATIVE (NEGATIVE); OPIATES URINE NEGATIVE (NEGATIVE); PHENCYCLIDINE URINE NEGATIVE (NEGATIVE)
[2019-08-19 15:38] VITALS: BP 126/58
--- NOTE | 2019-08-19 17:16 | ECGEPIP ---
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
== END 2019-08-19 15:48 | disposition home or self-care (01) ==
LOC: EDBD 12:15 → M ED 12:15
DX: R56.9 Unspecified convulsions (principal); Z79.899 Other long term (current) drug therapy
CPT/HCPCS: 80053; 80307; 81001; 82550; 82553; 83605; 83690; 84443; 84484; 85025; 93005; 93041; 94760; 99285; G0480